=== PATIENT | female | born 1995 | race Caucasian/White ===

== ENCOUNTER 2021-10-25 11:41 | Emergency (ER) | payer BC, OTHER, SELFPAY ==
[2021-10-25 11:58] VITALS: BP 123/70; PULSE 92; RESP 16; TEMP 36.8; O2SAT 99
--- NOTE | 2021-10-25 12:34 | ED.URI ---
HPI - URI/Sore Throat General Chief Complaint: Skin/Abscess/Foreign Body Stated Complaint: birch Source: patient and RN notes reviewed Mode of arrival: ambulatory Limitations: no limitations History of Present Illness MD elicited complaint: cough and sore throat Related Data Home Medications Medication Instructions Recorded Confirmed eletriptan 40 mg PO PRN PRN 10/25/21 10/25/21 ergocalciferol (vitamin D2) 1,250 mcg PO WEEKLY 10/25/21 10/25/21 ibuprofen 800 mg PO TID 10/25/21 10/25/21 omeprazole 40 mg PO DAILY 10/25/21 10/25/21 sumatriptan succinate 50 mg PO DAILY 10/25/21 10/25/21 venlafaxine 37.5 mg PO DAILY 10/25/21 10/25/21 Allergies Allergy/AdvReac Type Severity Reaction Status Date / Time oxycodone Allergy Intermediate itchy/hives Verified 10/25/21 12:33 acetaminophen Allergy Mild HIVES Verified 10/25/21 12:33 morphine Allergy Mild RASH Verified 10/25/21 12:33 Review of Systems Review of Systems: CONSTITUTIONAL: Denies malaise, chills, sweats, or fever. EYES: Denies visual changes, redness, or discharge. ENT: Reports rhinorrhea, congestion, sinus pain, otalgia and sore throat. CARDIOVASCULAR: Denies chest pain, palpitations, or edema. RESPIRATORY: Reports cough. Denies dyspnea. GASTROINTESTINAL: Denies abdominal pain, nausea, vomiting, diarrhea SKIN: Denies rash or itching. MUSCULOSKELETAL: Denies myalgia. NEUROLOGIC: Denies headache. All systems reviewed & are unremarkable except as noted in HPI and below PMFSH Comments At time of signature, agree with nursing past medical, surgical, social and family history. There is no relevant family history pertinent to the presenting complaint Exam Narrative: GENERAL: Well-appearing, well-nourished, and in no acute distress. HEAD: Normocephalic EYES: PERRLA, conjunctivae clear ENT: Nares clear, turbinates edematous and erythematous, clear discharge. Mucous membranes moist. TM pearly quintanilla with dull light reflex bilaterally; no tragal tenderness. Oropharynx not erythematous without lesions. Tonsils not enlarged and without exudate, no drooling, no hoarseness, no trismus, uvula midline. NECK: Supple. No lymphadenopathy CHEST: Clear to auscultation, breath sounds equal. No wheezing, rhonchi, rales, or stridor. No respiratory distress, speaks in full sentences. HEART: Regular rate and rhythm. No murmur heard. SKIN: Warm, dry, no rash. NEURO: Alert and oriented x3. PSYCH: Normal mood and affect Course Course Emergency Course: Patient is aware of diagnosis, understands and agrees to treatment plan. Anticipatory guidance given. Patient agrees to follow-up as directed and is aware of reasons to seek care at the emergency department. Portions of this record may have been created with voice recognition software Vital Signs Vital signs: Vital Signs Temperature 98.2 F 10/25/21 11:58 Pulse Rate 92 10/25/21 11:58 Respiratory Rate 16 10/25/21 11:58 Blood Pressure 123/70 10/25/21 11:58 Pulse Oximetry 99 10/25/21 11:58 Temperature 98.2 F 10/25/21 11:58 Pulse Rate 92 10/25/21 11:58 Respiratory Rate 16 10/25/21 11:58 Blood Pressure 123/70 10/25/21 11:58 Pulse Oximetry 99 10/25/21 11:58 Reviewed. MDM - URI/Sore Throat MDM Narrative Medical decision making narrative: Differential diagnosis considered: Roth virus, strep pharyngitis, allergic rhinitis, upper respiratory tract infection, sinusitis, rhinosinusitis, nasopharyngitis. viral pharyngitis, otitis media, otitis externa, pneumonia, bronchitis, viral cough syndrome, viral syndrome, and influenza. Exam findings show no acute concerns or changes; patient is non-toxic appearing and is in no distress. Patient is appropriate for outpatient treatment and follow-up. Lab Data Attestation: I reviewed the patient's lab results. Critical Care Time Critical Care Time Critical Care Time: No Discharge Plan Discharge Clinical Impression: Abscess of skin or subcutaneous tissue, History of MRSA infec
--- NOTE | 2021-10-25 12:56 | ED.SKABFB ---
HPI - Skin/Abscess/Foreign Bdy General Chief complaint: Skin/Abscess/Foreign Body Stated complaint: birch Time Seen by Provider: 10/25/21 12:40 Source: patient and RN notes reviewed Mode of arrival: ambulatory Limitations: no limitations History of Present Illness HPI narrative: 26-year-old female presents with concern for red raised bump on her right hip. She reports a history of MRSA infection. She denies any drainage from the area. In a separate complaint she reports a ongoing migraine, she has recently changed her migraine medication. She denies any thunderclap headache. She denies any weakness in the extremity. And a third complaint, she reports a swollen area behind her left ear. She denies any ear discharge, ear pain. She denies upper respiratory infection symptoms. She denies intervention. MD complaint: abscess/boil Related Data Home Medications Medication Instructions Recorded Confirmed eletriptan 40 mg PO PRN PRN 10/25/21 10/25/21 ergocalciferol (vitamin D2) 1,250 mcg PO WEEKLY 10/25/21 10/25/21 ibuprofen 800 mg PO TID 10/25/21 10/25/21 omeprazole 40 mg PO DAILY 10/25/21 10/25/21 sumatriptan succinate 50 mg PO DAILY 10/25/21 10/25/21 venlafaxine 37.5 mg PO DAILY 10/25/21 10/25/21 Allergies Allergy/AdvReac Type Severity Reaction Status Date / Time oxycodone Allergy Intermediate itchy/hives Verified 10/25/21 12:33 acetaminophen Allergy Mild HIVES Verified 10/25/21 12:33 morphine Allergy Mild RASH Verified 10/25/21 12:33 Review of Systems Review of Systems: CONSTITUTIONAL: Denies malaise, chills, sweats, or fever. ENT: Denies rhinorrhea, congestion, sinus pain, otalgia or sore throat. CARDIOVASCULAR: Denies chest pain, palpitations, or edema. RESPIRATORY: Denies cough or dyspnea. SKIN: Reports a raised red tender bump on her right hip. Reports a swollen area behind her left ear MUSCULOSKELETAL: Denies myalgia. NEUROLOGIC: Reports chronic headache. All systems reviewed & are unremarkable except as noted in HPI and below PMFSH Comments At time of signature, agree with nursing past medical, surgical, social and family history. There is no relevant family history pertinent to the presenting complaint Exam Narrative: GENERAL: Well-appearing, well-nourished, and in no acute distress. HEAD: Normocephalic, atraumatic. EYES: PERRLA, conjunctivae clear, and EOMI. ENT: Mucous membranes moist. NECK: Supple. No lymphadenopathy CHEST: Clear to auscultation. No respiratory distress. HEART: Regular rate and rhythm. SKIN: Warm, dry. 1.5 cm raised nonfluctuant area noted to the right hip with central scab, no drainage noted. Surrounding excoriated skin consistent with reaction to adhesive NEURO: Alert and oriented x3. No focal deficits PSYCH: Normal mood and affect Course Course Emergency Course: Discussed with patient following up with primary care doctor regarding ongoing chronic migraines. Patient is aware of diagnosis, understands and agrees to treatment plan. Anticipatory guidance given. Patient agrees to follow-up as directed and is aware of reasons to seek care at the emergency department. Portions of this record may have been created with voice recognition software Vital Signs Vital signs: Vital Signs Temperature 98.2 F 10/25/21 11:58 Pulse Rate 92 10/25/21 11:58 Respiratory Rate 16 10/25/21 11:58 Blood Pressure 123/70 10/25/21 11:58 Pulse Oximetry 99 10/25/21 11:58 Temperature 98.2 F 10/25/21 11:58 Pulse Rate 92 10/25/21 11:58 Respiratory Rate 16 10/25/21 11:58 Blood Pressure 123/70 10/25/21 11:58 Pulse Oximetry 99 10/25/21 11:58 Reviewed. MDM - Skin/Abscess/Foreign Bdy MDM Narrative Medical decision making narrative: Does not appear at this time to be erythema multiforme, bullous, SJS, TEN; no evidence at this time to suggest RMSF, endocarditis or Lyme disease; patient looks well, nontoxic and is tolerating oral intake; no neurologic signs or symptoms; no heada
== END 2021-10-25 12:58 | disposition home or self-care (01) ==
PROVIDERS: Emergency Provider Nurse Practitioner
DX: L02.219 Cutaneous abscess of trunk, unspecified (principal); Z79.1 Long term (current) use of non-steroidal anti-inflammatories (NSAID); Z86.14 Personal history of Methicillin resistant Staphylococcus aureus infection
CPT/HCPCS: 99213; G0463

== ENCOUNTER 2022-05-31 17:29 | Emergency (ER) | payer SELFPAY ==
--- NOTE | ~2022-05-31 | XR_ITS ---
EXAM: XR hand RT min 3V DATE: 05/31/2022 17:56 HISTORY: rt 5th metacarpal pain s/p punching wall today pt shielded . COMPARISON: None available. FINDINGS: Normal mineralization. No fracture or dislocation. No lytic or blastic lesion. Joint space s are maintained. No erosion or periosteal change. Soft tissues within normal limits. IMPRESSION: No acute osseous finding in the right hand. Reviewed, dictated and finalized at location K.
[2022-05-31 17:46] VITALS: BP 126/76; PULSE 76; RESP 16; TEMP 36.9; O2SAT 99
--- NOTE | 2022-05-31 18:22 | ED.UPPEXIN ---
HPI - Extremity Injury (Upper) General Chief Complaint: Extremity Injury, Upper Stated Complaint: injury Time Seen by Provider: 05/31/22 18:16 Source: patient Mode of arrival: ambulatory Limitations: no limitations History of Present Illness HPI narrative: Patient presents today complaining of a right hand injury after she punched a plaster wall this morning. At rest, she currently rates her pain 2/10, which increases significantly with movement. She has been applying ice and taking ibuprofen with some mild relief. She reports some tingling to the dorsum of her hand and fingers. 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 Related Data Home Medications Medication Instructions Recorded Confirmed eletriptan 40 mg tablet 40 mg PO PRN PRN Migraine Headache 10/25/21 10/25/21 ergocalciferol (vitamin D2) 1,250 1,250 mcg PO WEEKLY 10/25/21 10/25/21 mcg (50,000 unit) capsule ibuprofen 800 mg tablet 800 mg PO TID 10/25/21 10/25/21 omeprazole 40 mg capsule,delayed 40 mg PO DAILY 10/25/21 10/25/21 release sumatriptan succinate 50 mg tablet 50 mg PO DAILY 10/25/21 10/25/21 venlafaxine 37.5 mg 37.5 mg PO DAILY 10/25/21 10/25/21 capsule,extended release 24 hr Allergies Allergy/AdvReac Type Severity Reaction Status Date / Time oxycodone Allergy Intermediate itchy/hives Verified 10/25/21 12:33 acetaminophen Allergy Mild HIVES Verified 10/25/21 12:33 morphine Allergy Mild RASH Verified 10/25/21 12:33 Review of Systems Review of Systems: CONSTITUTIONAL: Denies body aches, fever, chills, or sweats. EYES: Denies visual changes, redness, or discharge. ENT: Denies rhinorrhea, congestion, sore throat, or otalgia. CARDIOVASCULAR: Denies chest pain, palpitations, or edema. RESPIRATORY: Denies cough or dyspnea. GASTROINTESTINAL: Denies abdominal pain, nausea, vomiting, or diarrhea. GENITOURINARY: Denies dysuria or hematuria. SKIN: Denies rash, itching, or wounds. MUSCULOSKELETAL: Denies back pain, or myalgia.+ Right hand injury NEUROLOGIC: Denies headache, numbness, or weakness.+ Right hand tingling PSYCH: Denies depression or anxiety. PMFSH Comments At time of signature, I have reviewed and agree with nursing past medical, surgical, social and family history unless otherwise noted. Please see nursing chart for further information. There is no relevant family history pertinent to the presenting complaint Exam Narrative: GENERAL: Well-appearing, well-nourished, and in no acute distress. HEAD: Normocephalic, atraumatic. EYES: EOMI. No redness or drainage. Conjunctivae normal. ENT: Mucous membranes pink and moist. NECK: Normal AROM. CHEST: No respiratory distress. EXTREMITIES: Right hand: Ecchymosis overlying the distal fourth and fifth metacarpals with mild localized edema. Tenderness to the metacarpals 3 through 5. Distal sensation intact in all 5 fingers. Capillary refill normal. Radial pulse normal. No snuffbox tenderness. Full AROM of all fingers with increased pain. SKIN: Warm, dry, no rash. Capillary refill normal. Normal skin turgor. NEURO: No focal deficits. Alert and oriented x3. Gait steady. PSYCH: Normal affect. No signs of depression or anxiety. Course Course Level of Care: Express Care Visit Vital Signs Vital signs: Vital Signs Temperature 98.5 F 05/31/22 17:46 Pulse Rate 76 05/31/22 17:46 Respiratory Rate 16 05/31/22 17:46 Blood Pressure 126/76 05/31/22 17:46 Pulse Oximetry 99 05/31/22 17:46 Oxygen Delivery Room Air 05/31/22 17:46 Temperature 98.5 F 05/31/22 17:46 Pulse Rate 76 05/31/22 17:46 Respiratory Rate 16 05/31/22 17:46 Blood Pressure 126/76 05/31/22 17:46 Pulse Oximetry 99 05/31/22 17:46 Oxygen Delivery Room Air 05/31/22 17:46 Reviewed. Pt has been instructed to follow up with her PCP regarding her elevated blood pressure today. MDM - Extremity Injury (Upper) Differential Diagnosis Differential diagnosis: Likely fracture of hand and other (Hand contusio
== END 2022-05-31 18:31 | disposition home or self-care (01) ==
PROVIDERS: Emergency Provider Nurse Practitioner
DX: S60.221A Contusion of right hand, initial encounter (principal); W22.09XA Striking against other stationary object, initial encounter
CPT/HCPCS: 73130; 99213; G0463

== ENCOUNTER 2024-09-09 17:02 | Emergency (ER) | payer BC, SELFPAY ==
[2024-09-09 17:16] VITALS: BP 139/88; PULSE 88; RESP 20; TEMP 37.3; O2SAT 100
--- NOTE | 2024-09-09 21:52 | ED.URI ---
HPI - URI/Sore Throat General Chief Complaint: Upper Respiratory Infection Stated Complaint: Shortness of breath, Cough Time Seen by Provider: 09/09/24 17:24 Source: patient, RN notes reviewed and old records reviewed Mode of arrival: ambulatory Limitations: no limitations History of Present Illness HPI Narrative: 29-year-old female to Express Care for complaint fever up to 103?, chills, cough, shortness of breath for 2 weeks. Patient has attempted to treat with DayQuil, NyQuil and other [id number] medications. patient history of asthma, states she has not attempted to use her inhaler. patient able to tolerate fluids by mouth. Patient resting in exam room, appears tired and uncomfortable. Respirations even and nonlabored. Patient in no acute distress. Related Data Home Medications Medication Instructions Recorded Confirmed albuterol sulfate 90 mcg/actuation 2 puff inhalation QID PRN 09/09/24 09/09/24 aerosol inhaler Shortness Of Breath Or Wheezing Allergies Allergy/AdvReac Type Severity Reaction Status Date / Time acetaminophen [From Percocet] Allergy Mild Hives Verified 09/09/24 17:30 morphine Allergy Mild RASH Verified 09/09/24 17:30 oxycodone [From Percocet] Allergy Mild Hives Verified 09/09/24 17:30 Review of Systems Review of Systems: All systems reviewed & are unremarkable except as noted in HPI and below Constitutional: Constitutional: Reports as per HPI, Reports chills and Reports fever(s) Eyes: Eyes: Reports no additional eye complaints ENT: Reports system reviewed and no additional complaints, except as documented Cardiovascular: Cardiovascular: Reports no additional cardiovascular complaints, Denies chest pain and Denies dyspnea Respiratory: Respiratory: Reports as per HPI, Reports cough and Reports dyspnea Musculoskeletal: Musculoskeletal: Reports no additional musculoskeletal complaints Neurologic: Reports system reviewed and no additional complaints, except as documented Psychiatric: Psychiatric: Reports no additional psychiatric complaints PMFSH Past Medical History Medical History Anxiety Arthritis Depression Irregular menstrual cycle Surgical History Surgical History History of delivery x 2 History of hysteroscopy D & C History of tonsillectomy Family History Family History Father Esophageal cancer Mother Hypertension Heart disease Social History Social History Social History: Caffeine-Soda Smoking packs per day: 1 Smoking cigarettes per day: 20.0 Years smoked: 13 Smoking pack-years: 13.00 Smoking status: Current every day smoker Alcohol intake: never Substance use: never Substance use type: does not use Lack of Transportation: No Lack of Food: Never True Current Housing: I Have Housing Concerned About Future Housing: No Difficulty Paying Gas/Electric Bills: No Difficulty Paying for Meds: No Currently Unemployed: No Education: Grade School Living arrangements: with family Occupation/Education: occupation Gender identity (if verbalized by the patient): Female Sexual Orientation (if Verbalized by the Patient): Straight or Heterosexual Comments At the time of my signature, I reviewed and agree with the nursing past medical, surgical, social, and family history. There is no relevant family history pertinent to the patient complaint. Exam Const: General: cooperative, healthy appearing, comfortable, no acute distress, alert and well nourished Nutritional Appearance: well nourished Orientation/consciousness: patient oriented x3 Limitations: no limitations HENMT: Head: normal to inspection Ears: external ears normal Face/Nose/Sinus: Normal external nose present, Normal nares present, normal facial exam, No erythema and No edema Face and sinus: normal facial exam, no erythema and no edema Mouth: Yes Normal oral and palatal mucosa present Eyes: General: appearance normal, both eyes and all related structures Neck: Neck: normal visual inspection, full ROM and no meningeal signs Lymphatic: no lymphadenopathy noted and no lymphedema noted Chest: Chest palpation & inspection: normal inspection of the chest Resp: Effort & Inspection: normal respiratory effort and able to speak in complete sentences Auscultation: crackles bilateral throughout and wheezes scattered wheezes Cardio: Jugular venous distension: no JVD Rate: regular rate Rhythm: regular rhythm Back/Spine/Pelvis: Cervical Spine: cervical ROM normal Skin: General skin exam: normal color, no rashes or lesions noted and turgor normal Neuro: General: patient oriented x3, gait normal, moves all extremities and no meningeal signs Speech: normal speech Gait exam (Neuro): Normal gait present Extrem: General: normal to inspection, full ROM and capillary refill normal Psych: Appearance: grossly normal and well kempt Course Course Emergency Course: Some parts of this dictation were generated by voice recognition software and may contain typographical and/or grammatical inaccuracies. Level of Care: Express Care Visit Vital Signs Vital signs: Vital Signs Temperature 37.3 C 09/09/24 17:16 Pulse Rate 88 09/09/24 17:16 Respiratory Rate 20 09/09/24 17:16 Blood Pressure 139/88 09/09/24 17:16 Pulse Oximetry 100 09/09/24 17:16 Oxygen Delivery Room Air 09/09/24 17:16 Temperature 37.3 C 09/09/24 17:16 Pulse Rate 88 09/09/24 17:16 Respiratory Rate 20 09/09/24 17:16 Blood Pressure 139/88 09/09/24 17:16 Pulse Oximetry 100 09/09/24 17:16 Oxygen Delivery Room Air 09/09/24 17:16 reviewed MDM - URI/Sore Throat MDM Narrative Medical decision making narrative: 29-year-old female to Express Care for complaint fever up to 103?, chills, cough, shortness of breath for 2 weeks. Patient has attempted to treat with DayQuil, NyQuil and other [id number] medications. patient history of asthma, states she has not attempted to use her inhaler. patient able to tolerate fluids by mouth. Patient resting in exam room, appears tired and uncomfortable. Respirations even and nonlabored. Patient in no acute distress. On exam, bilateral diffuse crackles, scattered wheezes. Consistent pneumonia. Patient declined x-ray. Patient is sitting in exam room nontoxic in appearance. Patient appropriate for outpatient treatment and follow-up. Discharge instructions reviewed with patient, as well as provided in writing per nursing staff. The instructions also include specific and strict return/GO TO THE ER as well as f/u information. All questions have been answered, and the patient deny any further questions with discharge and discharge plan. Some parts of this dictation were generated by voice recognition software and may contain typographical and/or grammatical inaccuracies. Differential Diagnosis Differential diagnosis: Likely upper respiratory infection, croup, otitis media, sinusitis, viral infection, bronchitis, influenza and pharyngitis Discharge Plan Discharge Clinical Impression: Pneumonia Patient Disposition: Home, Self-Care Condition: Stable Instructions: Pneumonia (ED) Additional Instructions: -Alternate Tylenol and Motrin per package directions for fever or pain. -Antihistamine medication such as Benadryl at night and Zyrtec/Claritin/Whitney during the day can help improve symptoms. -Use Flonase twice a day for 5 days then daily to help reduce the inflammation and dry up your sinuses. -You can also use Sudafed or Mucinex. Be sure to drink plenty of water with these medications at least 8 ounces with every dose and it is important to drink 8 to 10 glasses of water per day. Water is a natural decongestant -Eat and drink things that are easy to swallow, like tea or soup, or popsicles. -Oral rinses such as: Salt water gargles and/or may use topical anesthetic (eg. Chloraseptic spray) or lozenges to relieve dryness or throat pain). -Frequent hand washing or hand manager beverage is one of the best ways to prevent spread of infection. -Using a vaporizer or humidifier at night will also help thin secretions and help with coughing up phlegm. -Follow up with primary care provider in 2-3 days if condition is not improving; or seek ER visit if you have trouble breathing, cannot drink enough fluids, have muffled voice, difficulty opening your mouth, or severe swelling. Prescriptions: New azithromycin 250 mg tablet 250 mg PO DAILY Qty: 6 0RF Rx Instructions: 250 mg orally. Take TWO tablets today, then one tablet daily for 4 days. 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
== END 2024-09-09 17:45 | disposition home or self-care (01) ==
PROVIDERS: Emergency Provider Nurse Practitioner Family
DX: J18.9 Pneumonia, unspecified organism (principal); F17.210 Nicotine dependence, cigarettes, uncomplicated; M19.90 Unspecified osteoarthritis, unspecified site
CPT/HCPCS: 99213; G0463

== ENCOUNTER 2024-09-15 18:50 | Emergency (ER) | payer BC, SELFPAY ==
--- NOTE | ~2024-09-15 | XR_ITS ---
CHEST RADIOGRAPH, PA AND LATERAL CLINICAL HISTORY: SOB, COUGH . COMPARISON: 06/13/2017 TECHNIQUE: PA and lateral views of the chest. FINDINGS The cardiomediastinal silhouette is unremarkable. Increased interstitial markings are identified bilaterally, findings suggesting mild pulmonary vascul ar congestion. The remainder of the lungs are clear. Visualized osseous structures and soft tissues are unremarkable. IMPRESSION: Mild pulmonary vascular congestion, without focal infiltrate or effusion. Of note, the original order for this patient has been canceled, however the images remain on the orig ina order. Reviewed, dictated and finalized at location A. ITY SYSTEMS ENGINEER IMPRESSION: Mild pulmonary vascular congestion, without focal infiltrate or effusion. Of note, the original order for this patient has been canceled, however the darline ges remain on the original order.
[2024-09-15 19:06] VITALS: BP 158/92; PULSE 57; RESP 18; TEMP 36.8; O2SAT 96
--- NOTE | 2024-09-15 19:08 | ED.URI ---
HPI - URI/Sore Throat General Chief Complaint: Upper Respiratory Infection Stated Complaint: poss pnuemonia Time Seen by Provider: 09/15/24 19:50 Source: patient and RN notes reviewed Mode of arrival: ambulatory Limitations: no limitations History of Present Illness HPI Narrative: 29-year-old female presents with concern for ongoing cough after being treated with a Z-Sanford and steroids for presumptive pneumonia. She did not have a chest x-ray at the original time of visit which was on September 09. She reports she has an ongoing cough. She reports she feels like her legs feel swollen and she feels like she gets short of breath. She reports her face is what she. She reports her face gets blotchy typically when she drinks alcohol. She is denying fevers. She is denying chest pain or fast heartbeat. MD elicited complaint: cough Related Data Allergies Allergy/AdvReac Type Severity Reaction Status Date / Time acetaminophen [From Percocet] Allergy Mild Hives Verified 09/09/24 17:30 morphine Allergy Mild RASH Verified 09/09/24 17:30 oxycodone [From Percocet] Allergy Mild Hives Verified 09/09/24 17:30 Review of Systems Review of Systems: CONSTITUTIONAL: Denies malaise, chills, sweats, or fever. EYES: Denies visual changes, redness, or discharge. ENT: Denies rhinorrhea, congestion, sinus pain, otalgia and sore throat. Reports ear pain CARDIOVASCULAR: Denies chest pain, palpitations, or edema. RESPIRATORY: Reports cough, occasional shortness of breath GASTROINTESTINAL: Denies abdominal pain, nausea, vomiting, diarrhea SKIN: Denies rash or itching. MUSCULOSKELETAL: Denies myalgia. NEUROLOGIC: Denies headache. All systems reviewed & are unremarkable except as noted in HPI and below PMFSH Past Medical History Medical History Anxiety Arthritis Depression Irregular menstrual cycle Surgical History Surgical History History of delivery x 2 History of hysteroscopy D & C History of tonsillectomy Family History Family History Father Esophageal cancer Mother Hypertension Heart disease Social History Social History Social History: Caffeine-Soda Smoking packs per day: 1 Smoking cigarettes per day: 20.0 Years smoked: 13 Smoking pack-years: 13.00 Smoking status: Current every day smoker Alcohol intake: never Substance use: never Substance use type: does not use Lack of Transportation: No Lack of Food: Never True Current Housing: I Have Housing Concerned About Future Housing: No Difficulty Paying Gas/Electric Bills: No Difficulty Paying for Meds: No Currently Unemployed: No Education: Grade School Living arrangements: with family Occupation/Education: occupation Gender identity (if verbalized by the patient): Female Sexual Orientation (if Verbalized by the Patient): Straight or Heterosexual Comments At time of signature, agree with nursing past medical, surgical, social and family history. There is no relevant family history pertinent to the presenting complaint Exam Narrative: GENERAL: Nontoxic-appearing, well-nourished, and in no acute distress. HEAD: Normocephalic EYES: PERRLA, conjunctivae clear ENT: Nares clear, turbinates edematous and erythematous, clear discharge. Mucous membranes moist. TM pearly quintanilla with dull light reflex bilaterally; no tragal tenderness. Oropharynx not erythematous without lesions. Tonsils not enlarged and without exudate, no drooling, no hoarseness, no trismus, uvula midline. NECK: Supple. No lymphadenopathy CHEST: Clear to auscultation, breath sounds equal. No wheezing, rhonchi, rales, or stridor. No respiratory distress, speaks in full sentences. Cough noted HEART: Regular rate and rhythm. No murmur heard. MUSC: No pitting edema noted in lower or upper extremities SKIN: Warm, dry, no rash. Flushed face noted NEURO: Alert and oriented x3. PSYCH: Normal mood and affect Course Course Emergency Course: Patient is aware of understands and agrees to be seen in the emergency room. Patient agrees to proceed directly to the emergency department. Portions of this record may have been created with voice recognition software Level of Care: Express Care Visit Vital Signs Vital signs: Reviewed. Transfer Transfered to: [place] Transportation: Other (Private vehicle) Transfer rationale: Pulmonary congestion Accepting physician: Kiko ALMANZAR - URI/Sore Throat JENELLE Narrative Medical decision making narrative: Differential diagnosis considered: Roth virus, strep pharyngitis, allergic rhinitis, upper respiratory tract infection, sinusitis, rhinosinusitis, nasopharyngitis. viral pharyngitis, otitis media, otitis externa, pneumonia, bronchitis, viral cough syndrome, viral syndrome, and influenza. Exam findings show no acute concerns or changes; patient is non-toxic appearing and is in no distress. Patient is appropriate for outpatient treatment and follow-up. Lab Data Attestation: I reviewed the patient's lab results. Imaging Data My impression: Images reviewed, interpreted by radiologist, agree, see report. Radiologist's impression: CHEST RADIOGRAPH, PA AND LATERAL CLINICAL HISTORY: SOB, COUGH . COMPARISON: 06/13/2017 TECHNIQUE: PA and lateral views of the chest. FINDINGS The cardiomediastinal silhouette is unremarkable. Increased interstitial markings are identified bilaterally, findings suggesting mild pulmonary vascular congestion. The remainder of the lungs are clear. Visualized osseous structures and soft tissues are unremarkable. IMPRESSION: Mild pulmonary vascular congestion, without focal infiltrate or effusion. Of note, the original order for this patient has been canceled, however the images remain on the original order. Critical Care Time Critical Care Time Critical Care Time: No Discharge Plan Discharge Clinical Impression: Pulmonary congestion Patient Disposition: Acute Care Hospital Condition: Stable Follow-up/Referrals: PHYSICIAN,INTERNET MARKETER [Primary Care Provider] - Time of Disposition: 20:30
== END 2024-09-15 20:36 | disposition short-term general hospital (02) ==
PROVIDERS: Emergency Provider Nurse Practitioner
DX: J81.1 Chronic pulmonary edema (principal); F17.210 Nicotine dependence, cigarettes, uncomplicated; M19.90 Unspecified osteoarthritis, unspecified site
CPT/HCPCS: 71046; 99212; G0463

== ENCOUNTER 2024-11-18 16:49 | Emergency (ER) | payer BC, SELFPAY ==
--- NOTE | ~2024-11-18 | XR_ITS ---
HISTORY: smash on garage door COMPARISON: None TECHNIQUE: 3 views of the left hand were performed. FINDINGS: No acute fracture is identified. The joint spaces are preserved. The carpal arcs are intact. Mild radiocarpal joint space narrowing with sclerosis of the distal radius is present. Trace negative ulnar variance is detected. Bone mineralization is unremarkable. No significant soft tissue swelling. No radiopaque foreign body is identified. IMPRESSION: No acute fracture or dislocation within the left hand, as detailed above. Reviewed, dictated and finalized at location A. SPERSON FASHION ACCESSORIES
[2024-11-18 17:05] VITALS: BP 128/79; PULSE 64; RESP 16; TEMP 36.9; O2SAT 100
--- NOTE | 2024-11-18 17:59 | ED_ITS ---
HPI - Extremity Injury (Upper) General Chief Complaint: Extremity Injury, Upper Stated Complaint: ring finger on left hand injury Source: patient, RN notes reviewed and old records reviewed Mode of arrival: ambulatory Limitations: no limitations History of Present Illness HPI narrative: 29-year-old female who presents to [facility] with complaints of injury to her left ring finger which occurred last p.m. when she smashed her finger in garage door.. Patient has swelling and bruising to her left 4th finger. Used ice to her finger last night and has used Ibuprofen for her discomfort today. Her finger is bruised and swollen to the distal lopez aspect with no injury to nail or nail bed region, has full mobility of her finger. MD complaint: injury to: left and finger (4th finger) Onset (ago): day(s) (last night) Place: home Severity scale (1-10): 4 Treatments prior to arrival: cold therapy and NSAIDS Related Data Allergies Allergy/AdvReac Type Severity Reaction Status Date / Time acetaminophen (From Percocet) Allergy Mild Hives Verified 11/18/24 17:10 morphine Allergy Mild RASH Verified 11/18/24 17:10 oxycodone (From Percocet) Allergy Mild Hives Verified 11/18/24 17:10 Review of Systems Review of Systems: CONSTITUTIONAL: Denies fever, chills, or sweats. EYES: Denies visual changes, redness, or discharge. ENT: Denies rhinorrhea, congestion, sore throat, or otalgia. CARDIOVASCULAR: Denies chest pain, palpitations, or edema. RESPIRATORY: Denies cough or dyspnea. GASTROINTESTINAL: Denies abdominal pain, nausea, vomiting, or diarrhea. GENITOURINARY: Denies dysuria or hematuria. SKIN: Denies rash or itching. MUSCULOSKELETAL: Denies back pain,positive for left ring finger pain swelling and bruising lopez aspect , or myalgia. NEUROLOGIC: Denies headache, numbness, or weakness. PSYCHIATRIC: Denies anxiety or depression. All systems reviewed & are unremarkable except as noted in HPI and below PMFSH Past Medical History Medical History Arthritis Irregular menstrual cycle Anxiety Depression Surgical History Surgical History History of tonsillectomy History of delivery x 2 History of hysteroscopy D & C Family History Family History Father Esophageal cancer Mother Hypertension Heart disease Social History Social History (Updated 11/20/24 @ 12:30 by Shandra Meadows NP) Social History: Caffeine-Soda Smoking packs per day: 1 Smoking cigarettes per day: 20.0 Years smoked: 13 Smoking pack-years: 13.00 Smoking status: Current every day smoker Tobacco type: e-cigarettes/vaping Additional smoking assessment comments: reports now vaping Alcohol intake: never Substance use: never Substance use type: does not use Lack of Transportation: No Lack of Food: Never True Current Housing: I Have Housing Concerned About Future Housing: No Difficulty Paying Gas/Electric Bills: No Difficulty Paying for Meds: No Currently Unemployed: No Education: Grade School Living arrangements: with family Occupation/Education: occupation Gender identity (if verbalized by the patient): Female Sexual Orientation (if Verbalized by the Patient): Straight or Heterosexual Comments At time of signature, agree with nursing past medical, surgical, social and family history. There is no relevant family history pertinent to the presenting complaint Exam Narrative: GENERAL: Well-appearing, well-nourished, and in no acute distress. HEAD: Normocephalic, atraumatic. EYES: PERRLA and EOMI. ENT: Nares clear, no rhinorrhea or epistaxis. Mucous membranes moist. NECK: Supple.no lymphadenopathy CHEST: Clear to auscultation. No respiratory distress.no cough noted SAO2 100% on room air HEART: Regular rate and rhythm. No murmur heard. Normal peripheral pulses. ABDOMEN: Soft, nontender, nondistended, normal active bowel sounds. EXTREMITIES: Normal range of motion. No edema.Exception noted to left lopez aspect of ring finger with swelling bruising and pain, has no injury to nail or nail bed. has gull mobility of left ring finger, strong left radial puse SKIN: Warm, dry, no rash. NEURO: No focal deficits. Alert and oriented x3. Course Course Emergency Course: Patient is aware of diagnosis, understands and agrees to treatment plan.? Anticipatory guidance given.? Patient agrees to follow-up as directed and is aware of reasons to seek care at the emergency department. Portions of this record may have been created with voice recognition software Level of Care: Express Care Visit Vital Signs Vital signs: Vital Signs Temperature 36.9 C 11/18/24 17:05 Pulse Rate 64 11/18/24 17:05 Respiratory Rate 16 11/18/24 17:05 Blood Pressure 128/79 11/18/24 17:05 Pulse Oximetry 100 11/18/24 17:05 Oxygen Delivery Room Air 11/18/24 17:05 Temperature 36.9 C 11/18/24 17:05 Pulse Rate 64 11/18/24 17:05 Respiratory Rate 16 11/18/24 17:05 Blood Pressure 128/79 11/18/24 17:05 Pulse Oximetry 100 11/18/24 17:05 Oxygen Delivery Room Air 11/18/24 17:05 Reviewed MDM - Extremity Injury (Upper) Differential Diagnosis Differential diagnosis: Likely finger sprain and other (finger fracture, contusion to left ring finger) Medical Records Attestation: I reviewed the patient's medical records. Imaging Data Attestation: I personally reviewed and interpreted this imaging study as follows: My impression: no fracture to left hand or left 4th finger Radiologist's impression: Express [facility] [place] [address] XRay Report Signed Patient: Mel Richards : 1995 MR#: [id number] Age: 29 Acct:[id number] Loc: [facility] ADM Date: 11/18/24Attending Dr: Ordering Physician: Shandra Meadows APRN Date of Service: 11/18/24 Procedure(s): XR hand LT min 3V Accession Number(s): [id number] cc: TOOL MACHINIST PHYSICIAN; Shandra Meadows APRN~ HISTORY: smash on garage door COMPARISON: None TECHNIQUE: 3 views of the left hand were performed. FINDINGS: No acute fracture is identified. The joint spaces are preserved. The carpal arcs are intact. Mild radiocarpal joint space narrowing with sclerosis of the distal radius is present. Trace negative ulnar variance is detected. Bone mineralization is unremarkable. No significant soft tissue swelling. No radiopaque foreign body is identified. IMPRESSION: No acute fracture or dislocation within the left hand, as detailed above. Reviewed, dictated and finalized at location A. RUMENT INSPECTOR Please be advised this is a medical document. It is intended for [id number] communication. It is written in medical language and may contain unfamiliar abbreviations or verbiage. Medical documents are intended to carry relevant information, facts as evident, and the clinical opinion of the practitioner at the time of the encounter. This report may have been done utilizing a voice recognition system. Attempts have been made to correct errors. However, there may be uncorrected grammatical, spelling, and recognition errors present. The file time of this note does not necessarily represent the time the patient was seen. Dictated By: Grace Orozco MD 11/18/24 0695 Signed By: <Electronically signed by Grace Orozco MD in OV> Critical Care Time Critical Care Time Critical Care Time: No Discharge Plan Discharge Clinical Impression: Contusion of left ring finger Qualifiers: Encounter type: initial encounter Damage to nail status: without damage Qualified Code(s): S60.042A - Contusion of left ring finger without damage to nail, initial encounter Patient Disposition: Home, Self-Care Condition: Stable Instructions: Antibiotic Form, Contusion in Adults (ED) Additional Instructions: Tylenol for lesser pain Ibuprofen regularly for the next 2-3 days for the inflammation Follow-up with orthopedic surgeon or hand surgeon if any further complaints Follow-up with PCP if further problems or concerns Ice to the area 20-30 minutes 4-6 times a day Elevate above heart If your symptoms persist, change or worsen significantly before you can contact your personal physician then please, without delay, go to the emergency department for further evaluation. Follow-up with PCP in 7-10 days or sooner if needed Follow up with PCP soon in regards to your blood pressure which is elevated above threshold for referral. Blood pressure above 120/80 may indicate pre- hypertension. Minimal elevation at 128/79 Patient Language: Faroese Prescriptions: New ibuprofen 600 mg tablet 600 mg PO QID PRN (Reason: fever or pain) Qty: 20 0RF Rx Instructions: Take with food Follow-up/Referrals: PHYSICIAN,TOOL MACHINIST [Primary Care Provider] - Time of Disposition: 18:52 Quality Sw[place] Coma Scale Eyes: Open Verbal: Oriented and Alert Motor: Follows Commands Ana Coma Total Score: 15
== END 2024-11-18 18:55 | disposition home or self-care (01) ==
PROVIDERS: Emergency Provider Registered Nurse
DX: S60.042A Contusion of left ring finger without damage to nail, initial encounter (principal); W20.8XXA Other cause of strike by thrown, projected or falling object, initial encounter; M19.90 Unspecified osteoarthritis, unspecified site; F41.8 Other specified anxiety disorders; F17.210 Nicotine dependence, cigarettes, uncomplicated
CPT/HCPCS: 73130; 99213; G0463

== ENCOUNTER 2024-12-17 16:08 | Emergency (ER) | payer BC, SELFPAY ==
--- NOTE | ~2024-12-17 | US_ITS ---
EXAMINATION: US OB <=14 wk fetus w TV DATE: 12/17/2024 18:56 BROTH MIXER INDICATION: Bleeding with positive test COMPARISON: 08/13/2024 TECHNIQUE: Real-time transabdominal obstetric ultrasound. FINDINGS: 4 para 2 Last menstrual period is given as 11/18/2024 Estimated date of delivery by last menstrual period is 08/25/2025 The uterus measures 8.8 x 4.1 x 5.3 cm. The endometrium is thickened, without a gestational sac identified. The right ovary is unremarkable in echogenicity and size and measures 3 x 1.2 x 1.6 cm. The left ovary is unremarkable in echogenicity and size and measures 2.2 x 1.9 x 1.9 cm. IMPRESSION: Endometrial thickening without a gestational sac identified. Please correlate these findings with the quantitative serum beta hCG. Reviewed, dictated and finalized at location A. H MIXER
--- OUTSIDE RECORDS SUMMARY | 2024-12-17 16:14 | XMS_ITS | Continuity of Care Document ---
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 No more than twodoses within a 24-hour period.. 40 MG - Active topiramate 100 mg tablet take 1 tablet by oral route every day 100 MG - Active ibuprofen 800 mg tablet take 1 tablet by oral route 3 times every day with food 800 MG - Active ondansetron 4 mg disintegrating tablet take 1 tablet by oral route every [address] on top of the tongue where they will dissolve, then swallow prn - Active ProAir HFA 90 mcg/actuation aerosol inhaler inhale 2 puff by inhalation route every 4 - 6 hours as needed - Active Procedures Procedure Date Office/Established Level 4 DepoMedrol 80mg Inj/Asp. Large jt. bursa (shoulder, hip, knee) Office/Established Level 4 Office/Established Level 4 Office/Established Level 5 NEOPRENE WRAP AROUND OUMAR SLEEVE 2020 X-ray Knee (3 View) (PA 30 WB Lateral, S unrise) Office/Established Level 4 SYST BP LT 130 MM HG DIAST BP 80-89 MM HG ROUTINE VENIPUNCTURE Office/New Level 4 SYST BP LT 130 MM HG DIAST BP < 80 MM HG RBC SED RATE AUTOMATED C-REACTIVE PROTEIN Office/Established Level 4 Office/Established Level 4 Office/Established Level 4 Office Consult Level 3 Office/Established Level 4 Office/Established Level 3 SYST BP LT 130 MM HG DIAST BP < 80 MM HG ROUTINE VENIPUNCTURE COMPREHEN METABOLIC PANEL Nasopharyngoscopy Office Consult Level 3 Office/New Level 2 SYST BP LT 130 MM HG DIAST BP < 80 MM HG URINALYSIS AUTO W/O SCOPE URINE TEST COMP CBC W/AUTO DIFF WBC ROUTINE VENIPUNCTURE ASSAY OF FREE THYROXINE ASSAY THYROID STIM HORMONE LIPID PANEL COMPREHEN METABOLIC PANEL Advance Directives Directive Yes / No Effective Date File Name No Information Encounters Encounter Description Practice Location Reason(s) For Visit Diagnoses Date Provider Providers Copied on Encounter [address] , [place], [place], [id number], [place] tel:[phone] [facility] No Information 3 Catrachita Gómez. [address] [place] [address], [id number] , [place]. tel: [phone] [address] [place], [id number], [place] tel: [phone] [facility] No Information 1 Oscar Britton. [facility] [place], [place], [id number] , [place]. tel: [phone] Office/Estab lished Level [address] [place], [id number], [place] tel: [phone] [facility] Headache (chief complaint) Migraine without aura and without status migrainosus, not intractableDem yelinating changes in brainBody mass index (BMI) 36.0-36.9, adult May- 1 Oscar Britton. [address] [place] [address], [id number] , [place]. tel: [phone] Referring Provider: Reba Moore, [address] [place] [address], [address] . tel:[phone] Office/Estab lished Level [address] [place], [id number], [place] tel: [phone] [facility] Knee Pain (chief complaint) Patellofemoral pain syndrome of left kneeBody mass index (BMI) 37.0-37.9, adult Apr- 1 Milton Teran. [address] [place], [address], [place]. tel: [phone] Referring Provider: Dalia Domínguez, [address] [place], [address] . tel:[phone] [place], [id number], [place] tel: [phone] [facility] Sinus problemDemyeli nating changes in brain 1 Oscar Britton. [address] [place] [address], [id number] , [place]. tel: [phone] Office/Estab lished Level [address] [place], [id number], [place] tel:[phone] [facility] Headache (chief complaint) Migraine without aura and without status migrainosus, not intractableAbn ormal MRA, brainBody mass index (BMI) 37.0-37.9, adult Terry- 1 Oscar Britton. [address] [place] [address], [id number] , [place]. tel: [phone] Referring Provider: Reba Moore, [address] [place] [address], [address] . tel:[phone] [facility] [address] [place], [id number], [place] tel:[phone] [facility] Knee Pain (chief complaint) Chronic pain of left kneeBody mass index (BMI) 37.0-37.9, adult Terry-0 1 Milton Teran. [address] [place], [address], [place]. tel: [phone] Referring Provider: Dalia Domínguez, [address] [place] [address], [address] . tel:[phone] [place], [id number], [place] tel:[phone] [facility] No Information 1 Catrachita Gómez. [address] [place] [address], [id number] , [place]. tel: [phone] Referring Provider: Dalia Domínguez, [address] [place] [address], [address] . tel:[phone] [facility] [address] [place], [id number], [place] tel:[phone] [facility] Follow up (chief complaint) Chronic pain of left kneeBody mass index (BMI) 37.0-37.9, adult Terry-0 1 Catrachita Gómez. [address] [place] [address], [id number] , [place]. tel: [phone] Referring Provider: Dalia Domínguez [address] [place] [address], [address] . tel:[phone] Office/[facility] [address] , [place], [place], [id number], [place] tel:[phone] [facility] Headache (chief complaint) Migraine without aura and without status migrainosus, not intractableBod y mass index (BMI) 37.0-37.9, adult - 1 Ayanna Solis. [address] [place] [address], [place], [place], [id number] , [place]. tel: [phone] Referring Provider: Dalia Domínguez, [address] [place] [address], [address] . tel:[phone] Office/Estab [address] [place], [place], [id number], [place] tel:[phone] Family Medicine [facility] Medication follow up (chief complaint) Migraine without status migrainosus, not intractable, unspecified migraine typeBody mass index (BMI) 36.0-36.9, adult March- 1 Catrachitaaleyda Gómez. [address] [place] [address], [id number] , [place]. tel: [phone] Referring Provider: Dalia Domínguez [address] [place] [address], [address] . tel:[phone] Office/Estab [address] [place], [place], [id number], [place] tel:[phone] [facility] Medicine [facility] Migraine follow up (chief complaint) Migraine without status migrainosus, not intractable, unspecified migraine typeBody mass index (BMI) 36.0-36.9, adult 1 Catrachitaaleyda Gómez. [address] [place] [address], [id number] , [place]. tel: [phone] Referring Provider: Dalia Domínguez, [address] [place] [address], [address] . tel:[phone] Office/Estab lished [facility] [address] [place], [id number], [place] tel: [phone] [facility] Foot Pain (chief complaint) Arthritis, midfootBody mass index (BMI) 36.0-36.9, adult Nov-2 3-202 0 Essie Kenyatta. [address] [place] [address], [address], [place]. tel: [phone] Referring Provider: Dalia Domínguez, [address] [place] [address], [address] . tel:[phone] Office Consult [facility] [address] [place], [place], [id number], [place] tel:[phone] [facility] Foot Pain (chief complaint) Arthritis, midfootBody mass index (BMI) 36.0-36.9, adult Sep-2 8-202 0 Essie Kenyatta. [address] [place] [address], [address], [place]. tel: [phone] Referring Provider: Dalia Domínguez, [address] [place] [address], [address] . tel:[phone] Office/Estab lished [address] [place], [place], [id number], [place] tel: [phone] [facility] Foot pain (chief complaint) Chronic pain in left footBody mass index (BMI) 36.0-36.9, adult Sep-2 2-202 0 Catrachita Gómez. [address] [place] [address], [id number] , [place]. tel: [phone] Referring Provider: Dalia Domínguez, [address] [place] [address], [address] . tel:[phone] [facility] [address] [place], [place], [id number], [place] [phone] [facility] Depression and Anxiety (chief complaint) Elevated liver enzymesAnxiety and depressionBody mass index (BMI) 36.0-36.9, adult 0 Centraliaaleyda Gómez. [address] [place] [address], [id number] , [place]. tel: [phone] Referring Provider: Dalia Domínguez, [address] [place] [address], [address] . tel:[phone] Office Consult Level [address] [place], [id number], [place] [phone] ENT [facility] Sore throat (chief complaint) Painful swallowingBody mass index (BMI) 34.0-34.9, adult 0 Jazmyn Regan. [address] [place] [address], [id number] , [place]. tel:[phone] Referring Provider: Dalia Domínguez, [address] [place] [address], [address] . tel:[phone] Office/New Level [address] [place], [id number], [place] [phone] Family Medicine [facility] Establish Care (chief complaint)A nxiety and Depression (chief complaint)R ight sided throat pain (chief complaint) Encounter to establish careAnxiety and depressionMajo r depressive disorder, single episode, unspecifiedPai nful swallowingBody mass index (BMI) 36.0-36.9, adultEncounter for screening for diabetes mellitusEncoun ter for screening for cardiovascular disorders 0 Catrachita Gómez. [address] [place] [address], [id number] , [place]. tel: [phone] Referring Provider: Dalia Domínguez [address] [place] [address], [address] . tel:[phone] Family History Family Member Type Diagnosis Age At Onset Father Problem (finding) malignant neop lasm of pharynx (Cause Of ) Father Problem (finding) Maternal grandmother Problem (finding) malignant neopl asm of pharynx Immunizations Vaccine Date Status Comments Influenza, recombinant, injectable, trivalent, preservative free Flublok refused Source: New Immuniza tion Record Influenza, recombinant, injectable, trivalent, preservative free Flublok refused Source: New Immuniza tion Record Influenza, recombinant, injectable, trivalent, preservative free Flublok refused Source: New Immuniza tion Record Influenza, recombinant, injectable, trivalent, preservative free Flublok refused Source: New Immuniza tion Record Influenza, recombinant, injectable, trivalent, preservative free Flublok refused Source: New Immuniza tion Record Influenza, recombinant, injectable, trivalent, preservative free Flublok refused Source: New Immuniza tion Record Payers Payer name Insurance type Covered constitution party ID Authoriza tion(s) No Information Social History Type Description Quantity Date Captured Comments Sex Female Smoking Status No Information Chief Complaint And Reason For Visit No Information Reason For Referral Reason For Referral No Information Plan Of Treatment Date Type Action Status Goal HPV (1st). Due on due Goal Diabetes screeni ng. Due on due Goal Td vaccine. Due on 21 due Goal Rubeola Antibody Titer (igG). Due on due Goal Physical Exam. Due on due Goal Influenza Vaccin e. Due on due Goal Depression scree sher. Due on due Goal PAP. Due on due Goal Tdap. Due on due Goal Rubeola Antibody Titer (igG). Due on due Goal PAP. Due on due Goal Depression scree sher. Due on due Goal Physical Exam. Due on due Goal HPV (1st). Due on due Goal Influenza Vaccin e. Due on due Goal Tdap. Due on due Goal Td vaccine. Due on due Goal Diabetes screeni ng. Due on due Goal Influenza Vaccin e. Due on due Goal PAP. Due on due Goal Tdap. Due on due Goal Td vaccine. Due on due Goal Physical Exam. Due on due Goal Depression scree sher. Due on due Goal HPV (). Due on due Goal Diabetes screeni ng. Due on due Goal Rubeola Antibody Titer (igG). Due on due Goal PAP. Due on due Goal Diabetes screeni ng. Due on due Goal Physical Exam. Due on due Goal Td vaccine. Due on due Goal HPV (1st). Due on due Goal Depression scree sher. Due on due Goal Rubeola Antibody Titer (igG). Due on due Goal Influenza Vaccin e. Due on due Goal Tdap. Due on due Goal Depression scree sher. Due on due Goal Rubeola Antibody Titer (igG). Due on due Goal Influenza Vaccin e. Due on due Goal Tdap. Due on due Goal Diabetes screeni ng. Due on due Goal Physical Exam. Due on due Goal HPV (). Due on due Goal Td vaccine. Due on due Goal PAP. Due on due Goal Diabetes screeni ng. Due on due Goal PAP. Due on due Goal Physical Exam. Due on due Goal Tdap. Due on due Goal Td vaccine. Due on due Goal Influenza Vaccin e. Due on due Goal Rubeola Antibody Titer (igG). Due on due Goal HPV (). Due on due Goal Depression scree sher. Due on due Goal Td vaccine. Due on due Goal Rubeola Antibody Titer (igG). Due on due Goal Physical Exam. Due on due Goal Diabetes screeni ng. Due on due Goal Depression scree sher. Due on due Goal PAP. Due on due Goal HPV (1st). Due on due Goal Influenza Vaccin e. Due on due Goal Tdap. Due on due Goal PAP. Due on due Goal Diabetes screeni ng. Due on due Goal Tdap. Due on due Goal Physical Exam. Due on due Goal Depression scree sher. Due on due Goal Rubeola Antibody Titer (igG). Due on due Goal HPV (1st). Due on due Goal Influenza Vaccin e. Due on due Goal Td vaccine. Due on due Goal Diabetes screeni ng. Due on due Goal PAP. Due on due Goal Td vaccine. Due on 20 due Goal Influenza Vaccin e. Due on due Goal HPV (1st). Due on 0 due Goal Depression scree sher. Due on due Goal Rubeola Antibody Titer (igG). Due on due Goal Tdap. Due on due Goal Physical Exam. Due on due Goal Depression scree sher. Due on due Goal Tdap. Due on due Goal Td vaccine. Due on due Goal Rubeola Antibody Titer (igG). Due on due Goal Diabetes screeni ng. Due on due Goal PAP. Due on due Goal HPV (1st). Due on 0 due Goal Physical Exam. Due on due Goal HPV (1st). Due on 0 due Goal PAP. Due on due Goal Tdap. Due on due Goal Rubeola Antibody Titer (igG). Due on due Goal Td vaccine. Due on due Goal Depression scree sher. Due on due Goal Diabetes screeni ng. Due on due Goal Physical Exam. Due on due Goal Td vaccine. Due on due Goal Rubeola Antibody Titer (igG). Due on due Goal Depression scree sher. Due on due Goal Tdap. Due on due Goal Diabetes screeni ng. Due on due Goal PAP. Due on due Goal Physical Exam. Due on due Goal HPV (1st). Due on 0 due Goal HPV (1st). Due on 0 due Goal Tdap. Due on due Goal Rubeola Antibody Titer (igG). Due on due Goal Physical Exam. Due on due Goal PAP. Due on due Goal Depression scree sher. Due on due Goal Td vaccine. Due on due Goal Diabetes screeni ng. Due on due Goal Physical Exam. Due on due Goal HPV (1st). Due on due Goal Tdap. Due on due Goal PAP. Due on due Goal Td vaccine. Due on due Goal Depression scree sher. Due on due Goal Rubeola Antibody Titer (igG). Due on due Referral Ordered: Referrals: Otolaryngology. Consult ordered Referral Referred To: Parul Machuca PA-C [address] [place], [phone] Ordered: Referrals: Orthopedic Surgery. Parul Machuca PA-C. Evaluate and treat ordered Referral Ordered: Referrals: Neurology. Consult ordered Referral Referred To: [facility] for left foot Ordered: Referrals: [facility] for left foot. Consult Appointment date/timeframe: 99 ordered Referral Referred To: Kenyatta Fountain PA-C [address] [place], [phone] Ordered: Referrals: Orthopedic Surgery -Kenyatta Fountain PA-C. Consult ordered Referral Ordered: Referrals: Psychiatry. Evaluate and treat ordered Referral Ordered: Referrals: Otolaryngology. Evaluate and treat ordered Future Order: Radiology Order MR I KNEE LEFT WO CONTRAST ([id number] KNEE), Ordered on: Ordered Future Order: Radiology Order XR KNEE LEFT THREE VIEWS ([id number]), Sent on: Sent Future Order: Radiology Order XR FOOT LEFT MINIMUM OF THREE VIEWS ([id number]), Ordered on: Ordered History Of Present Illness Encounter Date Complaint History Of Prese nt Illness Headache It occurs interm ittently. The problem is improving. Pertinent negatives include blurred vision, dizziness, double vision and fever. Headache (comments) Presents for vv. Does feel that increase in Topamax to 100mg/day has helped lessen frequency of HAs, but did have severe MENDIOLA recently with N/V, which only typically happens about 1-2x/yr. Has been unable to have MRIs scheduled this week, and loses her insurance on Sunday x 3mth and they are moving to [place]. CTA without stenosis or vasculopathy, as MRA had noted. Knee Pain (comments) REVIEW MRI OF LEFT KNEE. Patient reports no improvement in pain. Pain located at anterior knee. pain does not radiate. Previous treatment: rest, ice, OTC anti-inflammatories, knee brace, formal PT, activity modifications. MRI left knee, 05/04/21, diagnostic imagin. no internal derangement noted2. normal MRI findings Knee Pain Location: left k nee. Additional information: pt present for MRI results f/u of Left Knee. Headache It occurs interm ittently. The problem is unchanged. Pertinent negatives include blurred vision, dizziness, double vision and fever. Headache (comments) Presents for vv for MRI f/u, though we do not have this report. Previous MRA showed tortuous vessels. HAs unchanged since increasing Topamax to 100mg 2wk ago, tolerating well. Currently in [place] with her and has had daily HAs since getting there. Eye exam UTD. Knee Pain (comments) LEFT KNEE P AIN X5 YEARS after an injury. States she sustained a left knee injury. States she fell onto the left knee. Pain has persisted and never improved. Pain located at anterior aspect of knee. Pain does not radiate. Pain described as throbbing and achy. Occasionally sharp. Pain is intermittent. Pain worse with hiking and increased activity. Pain better with rest . Associated sxs of crepitus, swelling and occasional instability. Denies calf pain. Previous treatment: rest, ice, OTC anti-inflammatories, activity modifications, OTC knee sleeve, OTC knee brace, pain medications, exercise, HEP with no relief. ADLs impacted: sleeping, hobbies, limits ability to work, stairs. Knee Pain Location: left k alyson. Follow up Patient presents in office to discuss her continuing left knee pain, would like Ortho referral, pain worse with walking, going up and down stairs. Injury was 2014 fell directly on her knee, xrays were neg at that time, was then slammed on her knee 2 days later even while on crutches, ever since she feels like she's had a bump on her knee, she continued with as much supportive care at home but with chasing her young children around it has kept her from being able to walk and exercise. Needs inhaler refill and Zofran for her headaches, has MRI schd for Neuro and follow up. Headache Pertinent negati ves include fever. Headache (comments) Patient repo rts headaches which have been worse for the past year. Headaches occur about 7 days/month before phonophobia nausea. No visual complaints. Reports seeing ophthalmology with unremarkable exam. No weakness numbness of extremities. Medication follow up Patient pre sents for VV, Topamax at 25mg is not helping would like to increase, MRI done, has Neuro eval in 2wks. Migraine follow up Patient prese nts for VV to discuss her worsening migraines in the past month. Pain behind the eyes and back of neck. OTC meds are now not providing much relief. In the past she took Tramadol prn for the migraines to get more functional. Both her son and daughter have been dx with per patient extra CSF around the brain and was told it could be hereditary, she is worried her migraines are due to an abnormality. Foot Pain Onset: 3 years a go. Severity level is 1. It occurs constantly and is stable. Location: left foot. The pain is aching. The pain is aggravated by walking and standing. The pain is relieved by shoe inserts. Associated symptoms include swelling. Pertinent negatives include joint tenderness, numbness, tingling in the legs and weakness. Additional information: She received her shoe inserts last week and notes a measurable improvement in her pain. She is able to walk further with less pain than before. . Foot Pain Onset: 3 years a go. Severity level is 3. It occurs constantly and is worsening. Location: left foot. The pain radiates to the left leg. The pain is dull and sharp. Context: there is no injury. The pain is aggravated by walking and standing. There are no relieving factors. Associated symptoms include decreased mobility, joint tenderness, popping and weakness. Pertinent negatives include difficulty initiating sleep, nocturnal awakening, nocturnal pain, numbness, spasms, swelling and tingling in the legs. Additional information: Patient reports a fall onto her knee a few years ago. She was on crutches and fell again trying to catch her young child. Did not notice any immediate foot pain at that time. Recalls no other injury per report. Foot pain Onset: 3 years a go. It occurs intermittently and is worsening. Location: left foot. The pain is aching, sharp and throbbing. Context: there is no injury. The pain is aggravated by walking and standing. The pain is relieved by rest. Associated symptoms include joint tenderness. Pertinent negatives include decreased mobility, popping and weakness. Additional information: Area of irritation/bump is not becoming more painful, almost feels like pain in joint. Localized to the lateral aspect just distal to the talus. Depression and Anxiety She state s the symptoms are chronic. Patient presents for follow up after increasing her Zoloft to 100mg, has not felt any changes in her depression or anxiety, feels like her depression has gotten worse. Does not eat but one meal a day, which is dinner. Has loose stools as well which has been present for almost 2yrs. Trying to quit smoking but does have many caffeinated beverages daily with her smoking. Worried about elevated liver enzymes because that was what happened before her father was dx with cancer. Does not sleep well at night and tried many OTC medications and natural supplements. Denies any homicidal or suicidal ideations. Sore throat Onset: 6 months ago. It occurs chronically. The problem has not changed. Context: tonsils absent and only w/swallow. There are no relieving factors. Pertinent negatives include chills, fever, headache, hoarseness, malaise, nasal congestion, otalgia, post-nasal drainage and vomiting. Additional information: no wt loss, elmer po well and at times feels like airway is closing. SEveral family members have of esoph or throat cancer Anxiety and Depression She state s the symptoms are chronic. Hx of anxiety and depression since middle school, has been on and off medications, has been worse after delivery of her children. Depression has worsened lately. Currently taking Sertraline 50mg. Denies any homicidal or suicidal ideations. Establish Care The symptoms beg an on 12/04/2019. Patient presents to establish care, has multiple complaints, daughter is about 16 months, unsure of last PAP but is up to date with [employer] exams. Maryanne IUD, doing well at this time, does spot but no full cycles. Long hx of depression and anxiety, currently taking medications since delivery of daughter. Reports left knee pain and left foot pain that is chronic for her. Left sided TMJ clicking chronic, just recently has some teeth pulled by dentist, on abx, mentioned the left jaw clicking but reports no tx done. Right sided throat pain She stat es the symptoms are chronic. Right sided, present for a few months, worried because father recently passed from throat cancer and a grandparent has had similar issues at well and it started as a lump in the throat. It does bother her with swallowing at times but cannot associate it with specific foods, discomfort when she lays on her right side at well at nighttime. She is a current smoker. Functional Status Date Functional Assessmen t No Information Instructions Date Instruction Additional Infor kyle Continue use of orth otics Weight management to reduce pressure on feet. Consider topical analgesic such as voltaren for pain relief if needed. Follow up is on an as needed basis. Related to Arthritis, midfoot patient is being ref erred for custom orthotics for her midfoot arthritis. Recommend good supportive shoe wear with wide toe box. antiinflammatories as needed for flares. follow up in approx. 6 weeks to reassess. Related to Arthritis, midfoot Recommended Ortho fo llow up for further evaluation and treatment. NSAIDS and modalities discussed. Related to Chronic pain in left foot Will contact with heidy byrne, provided as much information and reassurance as possible. Related to Elevated liver enzymes Psych referral. Cont inue with current medications. Related to Anxiety and depression ENT referral placed. Related to Painful swallowing Continue with curren t medications, discussed increase 50mg to 75mg, patient understanding. Related to Major depressive disorder, single episode, unspecified Assessments Type Assessment Date No Information Patient Care Teams Name Effective Dates (start - stop) Status Members No Information
--- OUTSIDE RECORDS SUMMARY | 2024-12-17 16:14 | XMS_ITS | Encounter Summary ---
Author Organization [facility] Address [address] [facility] [facility] [place] [address] Phone Care Team Providers Care Rn Document Improvement Name Role Phone Earline Mcgregor Primary Care Pro vider Frances Martines APRN, ENGINE REPAIRER SERVICE Unavailable [phone] Reason for Visit * Reason Comments Medication Refill Encounter Details Date Type Department Care Team (Late st Contact Info) Description 11/12/2023 Refill [facility] - Internal Medicine - [place] [address] [place] [id number] Earline Mcgregor, PAC [address] [facility] [place] [address] Medication Refill Social History Tobacco Use Types Packs/Day Years Used Date Smoking Tobacco: Every Day Cigarettes Smokeless Tobacco: Never Alcohol Use Standard Drinks/Week Comments Not Currently 0 (1 standard drink = 0.6 oz pur e alcohol) Education Answer Date Recorded What is the highest level of school you have completed or the highest degree you have received? 8th grade 06/27/2023 Comments No Sex and Gender Information Value Date Recorded Sex Assigned at Not on file Legal Sex Female 10:38 AM CDT Gender Identity Not on file Sexual Orientation Not on file documented as of this encounter Miscellaneous Notes * Telephone Encounter - Rama Puga RN - 11/13/2023 9:47 AM CST Medication failed the protocol, provider to review and approve the medication order if appropriate. Requested Prescriptions Pending Prescriptions Disp Refills busPIRone (BUSPAR) 5 MG Tablet [Pharmacy Med Name: busPIRone HCl 5 MG Oral Tablet] 60 Tablet 0 Sig: TAKE 1 TABLET BY MOUTH IN THE MORNING AND 1 TABLET AT BEDTIME Buspirone (6 Month Refill Only) Protocol Failed - 11/12/2023 2:03 PM Failed - Patient has established therapy with Buspirone for at least 6 months Passed - No test in the past 12 months or most recent test was negative Passed - No active on record Passed - Visit with relevant provider in past 6 months or upcoming 90 days Recent Visits Date Type Provider Dept 09/19/23 Office Visit Earline Mcgregor, PAC [facility] [place] 08/27/23 Office Visit Earline Mcgregor, PAC [facility] [place] 07/30/23 Office Visit Earline Mcgregor, PAC [facility] [place] 06/27/23 Office Visit Earline Mcgregor, PAC [facility] [place] Showing recent visits within past 182 days and meeting all other requirements Future Appointments No visits were found meeting these conditions. Showing future appointments within next 90 days and meeting all other requirements Passed - Has an encounter in the past 6 months with a depression or anxiety visit diagnosis GRINDER documented in this encounter Plan of Treatment Not on file documented as of this encounter Goals Goal Patient Goal Type Associated Problems Recent Progress Patient-Stated? Author have motivation and not get so easily overstimulated Behavioral Health Yes Carol Zaragoza, PUMPER GAGER Note: Goal/Objective: Reduce symptoms and improve coping. Anticipated Time Frame for Goal Completion: 1 year Goal Reviewed with: patient Readiness to change: Making a change Department associated with goal: [facility] Steps to achieve goal: will attend counseling/psychotherapy sessions at least once monthly, at least 6 sessions, utilizing individual and/or group sessions to express thoughts and feelings. to identify, verbalize and process at least three contributing factors/triggers to anxiety and depression. to identify and verbalize at least three actions/skills to prevent and/or cope with anxiety and depression. to put into action, at least one time weekly, for one month, an action/skill to prevent and or cope with anxiety and depression. documented as of this encounter Visit Diagnoses Not on filedocumented in this encounter Care Teams Rn Document Improvement Relationship Specialty Start Date End Date Earline Mcgregor, ANA ROSA [address] [place] [address] PCP - General Physician Rabbit Dresser 06/27/23 Frances Martines, ROUTE SALES DELIVERY DRIVER, ENGINE REPAIRER SERVICE [address] [place] [address] Nurse Practitioner Advanced Practice Nurse 09/06/23 documented as of this encounter
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
--- OUTSIDE RECORDS SUMMARY | 2024-12-17 16:14 | XMS_ITS | Continuity of Care Document ---
Author Organization Located within [facility] Address [address] [place] [address] [address] [place] [address] Phone Care Team Providers Care Administrative Assistant Front Desk Name Role Phone Valentino OD, Ankur Unavailable Unavailable Procedures Procedure Date Eye Exam & Treatment Refraction Eye Exam & Treatment Advance Directives Directive Yes / No Effective Date File Name No Information Encounters Encounter Description Practice Location Reason(s) For Visit Diagnoses Date Provider Providers Copied on Encounter [facility], [address] [place] [address] [address], [place], [place], [id number], tel:[phone] [facility] No Information 7-201 0 Valentino OD Ankur. [address] [facility] , [address], [place], [place], [facility], [place]. tel:[phone] [facility], [address] [place] [address] [address], [place], [place], [id number], tel:[phone] [facility] No Information 1-200 7 Valentino OD Ankur. [address] [facility] , [address], [place], [address], [place]. tel:[phone] Family History Family Member Type Diagnosis Age At Onset No Information Payers Payer name Insurance type Covered alliance party ID Authoriza tion(s) Medicaid [facility] [id number] Social History Type Description Quantity Date Captured Comments Sex Female Smoking Status No Information Chief Complaint And Reason For Visit No Information Reason For Referral Reason For Referral No Information History Of Present Illness Encounter Date Complaint History Of Prese nt Illness No Information Functional Status Date Functional Assessmen t No Information Instructions Date Instruction Additional Infor mation No Information Assessments Type Assessment Date No Information Patient Care Teams Name Effective Dates (start - stop) Status Members No Information
--- OUTSIDE RECORDS SUMMARY | 2024-12-17 16:14 | XMS_ITS | Encounter Summary ---
Author Organization [facility] Address [address] [facility] [place] [address] Phone Care Team Providers Care Personal Financial Representative Name Role Phone Earline Mcgregor Primary Care Pro vider Frances Martines APRN, GARBAGE TRUCK DRIVER Unavailable [phone] Reason for Visit * Reason Comments Medication Refill Encounter Details Date Type Department Care Team (Late st Contact Info) Description 10/11/2023 Refill [facility] - Internal Medicine - [place] [address] [place] [place] [id number] Earline Mcgregor, PAC [address] [place] [address] Medication Refill Social History Tobacco [...] on file Sexual Orientation Not on file COVID-19 Exposure Response Date Recorded In the last 10 days, have yo u been in contact with someone who was confirmed or suspected to have Coronavirus/COVID-19? No / Unsure 09/19/2023 10:42 AM SUSTAINABILITY DIRECTOR documented as of this encounter Miscellaneous Notes * Telephone Encounter - Rama Puga RN - 10/12/2023 8:37 AM CST Medication failed the protocol, provider to review and approve the medication order if appropriate. Requested Prescriptions Pending Prescriptions Disp Refills busPIRone (BUSPAR) 5 MG Tablet [Pharmacy Med Name: busPIRone HCl 5 MG Oral Tablet] 60 Tablet 0 Sig: Take 1 Tablet by mouth in the morning and at bedtime. Buspirone (6 Month Refill Only) Protocol Failed - 10/11/2023 5:40 PM Failed - Patient has established therapy with Buspirone for at least 6 months Passed - No test in the past 12 months or most recent test was negative Passed - No active on record Passed - Visit with relevant provider in past 6 months or upcoming 90 days Recent Visits Date Type Provider Dept 09/19/23 Office Visit Earline Mcgregor, PAC [facility] [place] 08/27/23 Office Visit Earline Mcgregor, PAC [facility] [place] 07/30/23 Office Visit Earline Mcgregor, PAC [facility] [place] 06/27/23 Office Visit Earline Mcgregor, PAC [facility] [place] Showing recent visits within past 182 days and meeting all other requirements Future Appointments Date Type Provider Dept 10/22/23 Appointment Earline Mcgregor, PAC [facility] [place] Showing future appointments within next 90 days and meeting all other requirements Passed - Has an encounter in the past 6 months with a depression or anxiety visit diagnosis AINABILITY DIRECTOR documented in this encounter Plan of Treatment Not on file documented as of this encounter Goals Goal Patient Goal Type Associated Problems Recent Progress Patient-Stated? Author have motivation and not get so easily overstimulated Behavioral Health Yes Carol Zaragoza, FORESTRY PILOT Note: Goal/Objective: Reduce symptoms and improve coping. Anticipated Time Frame for Goal Completion: 1 year Goal Reviewed with: patient Readiness to change: Making a change Department associated with goal: [facility] Steps to achieve goal: [...] on filedocumented in this encounter Care Teams Personal Financial Representative Relationship Specialty Start Date End Date Earline Mcgregor, ANA ROSA [address] [place] [address] PCP - General Physician Him Assistant 06/27/23 Frances Martines, FUSING FURNACE LOADER, GARBAGE TRUCK DRIVER [address] [place] [address] Nurse Practitioner Advanced Practice Nurse 09/06/23 documented as of this encounter
[2024-12-17 16:33] VITALS: BP 146/99; PULSE 66; RESP 18; TEMP 36.5; O2SAT 100
--- NOTE | 2024-12-17 18:02 | ED_ITS ---
HPI - Female Genitourinary General Chief complaint: Vaginal Bleeding Stated complaint: vaginal bleeding, cramping preg unknown wks Focused HPI: This is a 29 yo F who presents to the ED for chief complaint of vaginal bleeding and cramping with (+) home preg test. Reports LNMP around 10/26. States today she started bleeding around 11:00 a.m.. Reports this was associated with cramping. States that she has had several positive home tests. This would make her A1. endorses some dizziness but no syncope. GENERAL: Well-appearing, well-nourished, and in no acute distress. HEAD: Normocephalic, atraumatic. CHEST: Clear to auscultation. No respiratory distress. HEART: Regular rate and rhythm. NEURO: Alert and oriented x3. Patient screened in triage and initial orders placed. Additional care and disposition to be based upon diagnostic testing and treatment. Source: patient Mode of arrival: ambulatory Limitations: no limitations Related Data Allergies Allergy/AdvReac Type Severity Reaction Status Date / Time acetaminophen (From Percocet) Allergy Mild Hives Verified 11/18/24 17:10 morphine Allergy Mild RASH Verified 11/18/24 17:10 oxycodone (From Percocet) Allergy Mild Hives Verified 11/18/24 17:10 PMFSH Past Medical History Medical History Arthritis Irregular menstrual cycle Anxiety Depression Surgical History Surgical History History of tonsillectomy History of delivery x 2 History of hysteroscopy D & C Family History Family History Father Esophageal cancer Mother Hypertension Heart disease Social History Social History (Updated 11/20/24 @ 12:30 by Shandra Meadows NP) Social History: Caffeine-Soda Smoking packs per day: 1 Smoking cigarettes per day: 20.0 Years smoked: 13 Smoking pack-years: 13.00 Smoking status: Current every day smoker Tobacco type: e-cigarettes/vaping Additional smoking assessment comments: reports now vaping Alcohol intake: never Substance use: never Substance use type: does not use Lack of Transportation: No Lack of Food: Never True Current Housing: I Have Housing Concerned About Future Housing: No Difficulty Paying Gas/Electric Bills: No Difficulty Paying for Meds: No Currently Unemployed: No Education: Grade School Living arrangements: with family Occupation/Education: occupation Gender identity (if verbalized by the patient): Female Sexual Orientation (if Verbalized by the Patient): Straight or Heterosexual Course Vital Signs Vital signs: Vital Signs Temperature 97.7 F 12/17/24 16:33 Pulse Rate 66 12/17/24 16:33 Respiratory Rate 18 12/17/24 16:33 Blood Pressure 146/99 H 12/17/24 16:33 Pulse Oximetry 100 12/17/24 16:33 Oxygen Delivery Room Air 12/17/24 16:33 Temperature 97.7 F 12/17/24 16:33 Pulse Rate 66 12/17/24 16:33 Respiratory Rate 18 12/17/24 16:33 Blood Pressure 146/99 H 12/17/24 16:33 Pulse Oximetry 100 12/17/24 16:33 Oxygen Delivery Room Air 12/17/24 16:33 MDM - Female Genitourinary MDM Narrative Medical decision making narrative: Patient eloped after being screened initially in triage Discharge Plan Discharge Clinical Impression: Vaginal bleeding Patient Disposition: Elopement After Seen by Prov Condition: Stable Patient Language: Burmese Prescriptions: No Action ibuprofen 600 mg tablet 600 mg PO QID PRN (Reason: fever or pain) Qty: 20 0RF Rx Instructions: Take with food Follow-up/Referrals: PHYSICIAN,HVAC COMMERCIAL SALESPERSON [Primary Care Provider] -
--- NOTE | 2024-12-17 23:25 | PC.NURSE ---
Pt called to triage for lab work. No answer.
--- OUTSIDE RECORDS SUMMARY | 2024-12-18 04:49 | XMS_ITS | Encounter Summary ---
Author Organization [facility] Address [address] [facility] [facility] [place] [address] Phone Care Team Providers Care Cream Beater Name Role Phone Earline Mcgregor Primary Care Pro vider Frances Martines APRN, CAD DRAFTER Unavailable [phone]- [phone] Reason for Visit * Reason Comments Medication Refill Encounter Details Date Type Department Care Team (Late st Contact Info) Description 11/12/2023 Refill [facility] - Internal Medicine - [place] [address] [place] [id number] Earline Mcgregor, PAC [address] [facility] [place] [address] Medication Refill Social History Tobacco [...] Office Visit Earline Mcgregor, PAC [facility] [place] 08/27/23 Office Visit Earline Mcgregor, PAC [facility] [place] 07/30/23 Office Visit Earline Mcgregor, PAC [facility] [place] 06/27/23 Office Visit Earline Mcgregor, PAC [facility] [place] Showing recent visits within past 182 days and meeting all other requirements Future Appointments No visits were found meeting these conditions. Showing future appointments within next 90 days and meeting all other requirements Passed - Has an encounter in the past 6 months with a depression or anxiety visit diagnosis TICE ADVISOR documented in this encounter Plan of Treatment Not on file documented as of this encounter Goals Goal Patient Goal Type Associated Problems Recent Progress Patient-Stated? Author have motivation and not get so easily overstimulated Behavioral Health Yes Carol Zaragoza, DIRECTOR OF GRADUATE MEDICAL EDUCATION Note: Goal/Objective: Reduce symptoms and improve coping. Anticipated Time Frame for Goal Completion: 1 year Goal Reviewed with: patient Readiness to change: Making a change Department associated with goal: [facility] Steps to achieve goal: [...] on filedocumented in this encounter Care Teams Cream Beater Relationship Specialty Start Date End Date Earline Mcgregor, ANA ROSA [address] [place] [address] PCP - General Physician Flanging Operator 06/27/23 Frances Martines, ISOTOPE TECHNICIAN, CAD DRAFTER [address] [place] [address] Nurse Practitioner Advanced Practice Nurse 09/06/23 documented as of this encounter
--- OUTSIDE RECORDS SUMMARY | 2024-12-18 04:49 | XMS_ITS | Encounter Summary ---
Author Organization [facility] Address [address] [facility] [place] [address] Phone Care Team Providers Care Dental Technology Advisor Name Role Phone Earline Mcgregor Primary Care Pro vider Frances Martines APRN, TEENAGE PROGRAM DIRECTOR Unavailable [phone] Reason for Visit * Reason Comments Medication Refill Encounter Details Date Type Department Care Team (Late st Contact Info) Description 10/11/2023 Refill [facility] - Internal Medicine - [place] [address] [place] [id number] Earline Mcgregor, PAC [address] [place] [address] Medication Refill Social History Tobacco [...] Coronavirus/COVID-19? No / Unsure 09/19/2023 10:42 AM DB2 DBA documented as of this encounter Miscellaneous Notes [...] Office Visit Earline Mcgregor, PAC [facility] [place] 08/27/23 Office Visit Earline Mcgregor, PAC [facility] [place] 07/30/23 Office Visit Earline Mcgregor, PAC [facility] [place] 06/27/23 Office Visit Earline Mcgregor, PAC [facility] [place] Showing recent visits within past 182 days and meeting all other requirements Future Appointments Date Type Provider Dept 10/22/23 Appointment Earline Mcgregor, PAC [facility] [place] Showing future appointments within next 90 days and meeting all other requirements Passed - Has an encounter in the past 6 months with a depression or anxiety visit diagnosis 2 DBA documented in this encounter Plan of Treatment Not on file documented as of this encounter Goals Goal Patient Goal Type Associated Problems Recent Progress Patient-Stated? Author have motivation and not get so easily overstimulated Behavioral Health Yes Carol Zaragoza, MUD ANALYSIS WELL LOGGING CAPTAIN Note: Goal/Objective: Reduce symptoms and improve coping. Anticipated Time Frame for Goal Completion: 1 year Goal Reviewed with: patient Readiness to change: Making a change Department associated with goal: [facility] Steps to achieve [...] on filedocumented in this encounter Care Teams Dental Technology Advisor Relationship Specialty Start Date End Date Earline Mcgregor, ANA ROSA [address] [place] [address] PCP - General Physician Glue Machine Operator 06/27/23 Frances Martines, CLOTH DYE RANGE OPERATOR, TEENAGE PROGRAM DIRECTOR [address] [place] [address] Nurse Practitioner Advanced Practice Nurse 09/06/23 documented as of this encounter
--- OUTSIDE RECORDS SUMMARY | 2024-12-18 04:49 | XMS_ITS | Continuity of Care Document ---
Author Organization [facility] Address [address] [place] [address] [address] [place] [address] Phone Care Team Providers Care Drainman Name Role Phone Valentino OD, Ankur Unavailable Unavailable Procedures Procedure Date Eye Exam & Treatment Refraction Eye Exam & Treatment Advance Directives Directive Yes / No Effective Date File Name No Information Encounters Encounter Description Practice Location Reason(s) For Visit Diagnoses Date Provider Providers Copied on Encounter [facility], [address] [place] [address] [address], [place], [place], [id number], tel:[phone] [facility] No Information 7-201 0 Valentino OD Ankur. [address] [facility] , [address], [place], [place], [facility], [place]. tel:[phone] [facility], [address] [place] [address] [address], [place], [place], [id number], tel:[phone] [facility] No Information 1-200 7 Valentino OD Ankur. [address] [facility] , [address], [place], [address], [place]. tel:[phone] Family History Family Member Type Diagnosis Age At Onset No Information Payers Payer name Insurance type Covered constitution party ID Authoriza tion(s) Medicaid [facility] [id number] Social History Type Description Quantity Date Captured [...]
--- OUTSIDE RECORDS SUMMARY | 2024-12-18 04:49 | XMS_ITS | Continuity of Care Document ---
Author Organization [facility] Address [facility] [facility] [place] [address] Phone Care Team Providers Care Pattern Cutter Name Role Phone Dalia Rizo Unavailable Unavailable [...] Diagnoses Date Provider Providers Copied on Encounter [address] , [place], [place], [id number], [place] tel:[phone] Family Medicine At [facility] No Information 3 Catrachita Gómez. [address] [place] [address], [id number] , [place]. tel: [phone] [address] [place], [id number], [place] tel: [phone] Neurology At [facility] No Information 1 Oscar Britton. [facility] [place], [place], [id number] , [place]. tel: [phone] Office/Estab lished Level [address] [place], [id number], [place] tel: [phone] [facility] Headache (chief complaint) Migraine without aura and without status migrainosus, not intractableDem yelinating changes in brainBody mass index (BMI) 36.0-36.9, adult May- 1 Oscar Britton. [address] [place] [address], [id number] , [place]. tel: [phone] Referring Provider: Reba Moore, [address] [place] [address], [address] . tel:[phone] Office/Estab lished Level [address] [place], [id number], [place] tel: [phone] [facility] Knee Pain (chief complaint) Patellofemoral pain syndrome of left kneeBody mass index (BMI) 37.0-37.9, adult Apr- 1 Milton Teran. [address] [place], [address], [place]. tel: [phone] Referring Provider: Dalia Domínguez, [address] [place], [address] . tel:[phone] [place], [id number], [place] tel: [phone] [facility] Sinus problemDemyeli nating changes in brain 1 Oscar Britton. [address] [place] [address], [id number] , [place]. tel: [phone] Office/Estab lished Level [address] [place], [id number], [place] tel:[phone] [facility] Headache (chief complaint) Migraine without aura and without status migrainosus, not intractableAbn ormal MRA, brainBody mass index (BMI) 37.0-37.9, adult Terry- 1 Oscar Britton. [address] [place] [address], [id number] , [place]. tel: [phone] Referring Provider: Reba Moore, [address] [place] [address], [address] . tel:[phone] [facility] [address] [place], [id number], [place] tel:[phone] [facility] Knee Pain (chief complaint) Chronic pain of left kneeBody mass index (BMI) 37.0-37.9, adult Terry-0 1 Milton Teran. [address] [place], [address], [place]. tel: [phone] Referring Provider: Dalia Domínguez, [address] [place] [address], [address] . tel:[phone] [place], [id number], [place] tel:[phone] [facility] No Information 1 Catrachita Gómez. [address] [place] [address], [id number] , [place]. tel: [phone] Referring Provider: Dalia Domínguez, [address] [place] [address], [address] . tel:[phone] [facility] [address] [place], [id number], [place] tel:[phone] [facility] Follow up (chief complaint) Chronic pain of left kneeBody mass index (BMI) 37.0-37.9, adult Terry-0 1 Catrachita Gómez. [address] [place] [address], [id number] , [place]. tel: [phone] Referring Provider: Dalia Domínguez [address] [place] [address], [address] . tel:[phone] Office/[facility] [address] , [place], [place], [id number], [place] tel:[phone] Neurology [facility] Headache (chief complaint) Migraine without aura and without status migrainosus, not intractableBod y mass index (BMI) 37.0-37.9, adult - 1 Ayanna Solis. [address] [place] [address], [place], [place], [id number] , [place]. tel: [phone] Referring Provider: Dalia Domínguez, [address] [place] [address], [address] . tel:[phone] Office/Estab [address] [place], [place], [id number], [place] tel:[phone] Family Medicine [facility] Medication follow up (chief complaint) Migraine without status migrainosus, not intractable, unspecified migraine typeBody mass index (BMI) 36.0-36.9, adult March- 1 Catrachitaaleyda Gómez. [address] [place] [address], [id number] , [place]. tel: [phone] Referring Provider: Dalia Domínguez [address] [place] [address], [address] . tel:[phone] Office/Estab [address] [place], [place], [id number], [place] tel:[phone] [facility] Medicine [facility] Migraine follow up (chief complaint) Migraine without status migrainosus, not intractable, unspecified migraine typeBody mass index (BMI) 36.0-36.9, adult 1 Catrachitaaleyda Gómez. [address] [place] [address], [id number] , [place]. tel: [phone] Referring Provider: Dalia Domínguez, [address] [place] [address], [address] . tel:[phone] Office/Estab lished [facility] [address] [place], [id number], [place] tel: [phone] [facility] Foot Pain (chief complaint) Arthritis, midfootBody mass index (BMI) 36.0-36.9, adult Nov-2 3-202 0 Essie Kenyatta. [address] [place] [address], [address], [place]. tel: [phone] Referring Provider: Dalia Domínguez, [address] [place] [address], [address] . tel:[phone] Office Consult [facility] [address] [place], [place], [id number], [place] tel:[phone] [facility] Foot Pain (chief complaint) Arthritis, midfootBody mass index (BMI) 36.0-36.9, adult Sep-2 8-202 0 Essie Kenyatta. [address] [place] [address], [address], [place]. tel: [phone] Referring Provider: Dalia Domínguez, [address] [place] [address], [address] . tel:[phone] Office/Estab lished [address] [place], [place], [id number], [place] tel: [phone] [facility] Virtual Foot pain (chief complaint) Chronic pain in left footBody mass index (BMI) 36.0-36.9, adult Sep-2 2-202 0 Catrachita Gómez. [address] [place] [address], [id number] , [place]. tel: [phone] Referring Provider: Dalia Domínguez, [address] [place] [address], [address] . tel:[phone] [facility] Level [address] [place], [place], [id number], [place] [phone] [facility] Medicine [facility] Depression and Anxiety (chief complaint) Elevated liver enzymesAnxiety and depressionBody mass index (BMI) 36.0-36.9, adult 0 Rohrersvillealeyda Gómez. [address] [place] [address], [id number] , [place]. tel: [phone] Referring Provider: Dalia Domínguez, [address] [place] [address], [address] . tel:[phone] Office Consult Level [address] [place], [id number], [place] [phone] ENT [facility] Sore throat (chief complaint) Painful swallowingBody mass index (BMI) 34.0-34.9, adult 0 Jazmyn Regan. [address] [place] [address], [id number] , [place]. tel:[phone] Referring Provider: Dalia Domínguez, [address] [place] [address], [address] . tel:[phone] Office/New Level [address] [place], [id number], [place] [phone] Family Medicine [facility] Establish Care (chief complaint)A nxiety and Depression (chief complaint)R ight sided throat pain (chief complaint) Encounter to establish careAnxiety and depressionMajo r depressive disorder, single episode, unspecifiedPai nful swallowingBody mass index (BMI) 36.0-36.9, adultEncounter for screening for diabetes mellitusEncoun ter for screening for cardiovascular disorders 0 Catrachita Gómez. [address] [place] [address], [id number] , [place]. tel: [phone] Referring Provider: Dalia Domínguez [address] [place] [address], [address] . tel:[phone] Family History Family Member Type Diagnosis Age [...] Record Payers Payer name Insurance type Covered libertarian ID Authoriza tion(s) No Information Social History [...] Referral Referred To: Parul Machuca PA-C [address] [place], [phone] Ordered: Referrals: Orthopedic Surgery. Parul Machuca PA-C. Evaluate and treat ordered Referral Ordered: Referrals: Neurology. Consult ordered Referral Referred To: [facility] for left foot Ordered: Referrals: [facility] for left foot. Consult Appointment date/timeframe: 99 ordered Referral Referred To: Kenyatta Fountain PA-C [address] [place], [phone] Ordered: Referrals: Orthopedic Surgery -Kenyatta Fountain PA-C. Consult ordered Referral Ordered: Referrals: Psychiatry. Evaluate and treat ordered Referral Ordered: Referrals: Otolaryngology. Evaluate and treat ordered Future Order: Radiology Order MR I KNEE LEFT WO CONTRAST ([id number] KNEE), Ordered on: Ordered Future Order: Radiology Order XR KNEE LEFT THREE VIEWS ([id number]), Sent on: Sent Future Order: Radiology Order XR FOOT LEFT MINIMUM OF THREE VIEWS ([id number]), Ordered on: Ordered History Of Present [...] x 3mth and they are moving to [place]. CTA without stenosis or vasculopathy, as MRA [...] 100mg 2wk ago, tolerating well. Currently in [place] with her and has had daily HAs [...] members have of esoph or throat cancer Right sided throat pain She stat es [...] at nighttime. She is a current smoker. Establish Care The symptoms beg an on 12/04/2019. Patient presents to establish care, has multiple complaints, daughter is about 16 months, unsure of last PAP but is up to date with BAND LEADER exams. Maryanne IUD, doing well at this [...] jaw clicking but reports no tx done. Anxiety and Depression She state s the symptoms are chronic. Hx of anxiety and depression since middle school, has been on and off medications, has been worse after delivery of her children. Depression has worsened lately. Currently taking Sertraline 50mg. Denies any homicidal or suicidal ideations. Functional Status Date Functional Assessmen t No [...]
--- OUTSIDE RECORDS SUMMARY | 2024-12-18 04:49 | XMS_ITS | Clinical Summary ---
Author Organization [facility] Address [address] [place] [address] Phone Care Team Providers Care Principal Software Engineer Name Role Phone Earline Mcgregor PAC Primary Care Pro vider Frances Martines AIRCRAFT DETAIL DRAFTSPERSON, ISOTOPE TECHNOLOGIST Unavailable [phone] Allergies Active Allergy Reactions Criticality Noted Date [...] drink = 0.6 oz pur e alcohol) [facility] Utilities Answer Date Recorded In the past 12 months has DNS:Net, gas, oil, or water [employer] threatened to shut off services in your home? No 12/10/2023 Social Connection and Isolation Panel [NHANES] A nswer Date Recorded In a typical week, how many times do you talk on the phone with family, friends, or neighbors? Never 12/10/2023 How often do you get togethe r with friends or relatives? Never 12/10/2023 How often do you attend jewish or sikhism serv ices? Patient declined 12/10/2023 Do you belong to any clubs o r organizations such as jewish groups, unions, fraternal or athletic groups, or [...] medical care, and heating? Patient declined 12/10/2023 [employer] of Occupat ional [facility] - Occupational Stress Questionnaire Answer Date Recorded [...] Comments Blood Pressure 110/80 12/10/2023 3:15 PM COAL TRIMMER Pulse 88 12/10/2023 3:15 PM COAL TRIMMER Temperature 36.8 C (98.2 F) 12/10/2023 3:15 PM COAL TRIMMER Respiratory Rate 12 12/10/2023 3:15 PM COAL TRIMMER Oxygen Saturation 97% 12/10/2023 3:15 PM COAL TRIMMER Inhaled Oxygen Concentration - - Weight 101.2 kg (223 lb) 12/10/2023 3:15 PM COAL TRIMMER Height 165.1 cm (5' 5 ) 12/10/2023 3:15 PM COAL TRIMMER Body Mass Index 37.11 12/10/2023 3:15 PM COAL TRIMMER Plan of Treatment Health Maintenance Due Date [...] easily overstimulated Behavioral Health Yes Carol Zaragoza, GLASS BLOWING INSTRUCTOR Note: Goal/Objective: Reduce symptoms and improve coping. Anticipated Time Frame for Goal Completion: 1 year Goal Reviewed with: patient Readiness to change: Making a change Department associated with goal: [facility] Steps to achieve [...] with anxiety and depression. Insurance [place]ICAID [place] [facility] [place] Care Teams Principal Software Engineer Relationship Specialty Start Date End Date Earline Mcgregor, [facility] [address] [place] [address] PCP - General Physician Software Security Architect 06/27/23 Frances Martines, AIRCRAFT DETAIL DRAFTSPERSON, ISOTOPE TECHNOLOGIST [address] [place] [address] Nurse Practitioner Advanced Practice Nurse 09/06/23
== END 2024-12-17 23:25 | disposition left against medical advice (07) ==
LOC: ANHED 12-18 04:47
PROVIDERS: Emergency Provider Physician Assistant
DX: N93.9 Abnormal uterine and vaginal bleeding, unspecified (principal); F17.290 Nicotine dependence, other tobacco product, uncomplicated
CPT/HCPCS: 76801; 76817; 99284